=== PATIENT | female | born 1950 | race Caucasian/White ===

== ENCOUNTER 2016-08-10 13:39 | Outpatient (CLI) | payer OTHER ==
--- NOTE | 2016-08-10 14:26 | DIAGNOSTIC IMAGING REPORT ---
PROCEDURE: MG BILATERAL SCREENING W/CAD INDICATION: Screening. Prior right breast carcinoma with lumpectomy and radiation (2000). Family history breast carcinoma (sister). TECHNIQUE: Bilateral CC and MLO digital views. COMPARISON: Compared to 08/12/2015, 06/12/2014, 12/05/2012, 11/15/2011, 10/08/2010, and 11/03/2009. FINDINGS: Computer-aided detection applied. Moderately dense with a few scattered dystrophic calcification. There is parenchymal scarring in the medial right breast which appears stable. There is a 2.5 cm area of increased density in the retroareolar region of the right breast with obscured margins (seen only on the MLO view). IMPRESSION: 1. There is a 2.5 cm density in the retroareolar right breast mammogram (seen only on the MLO view). While this may represent normal asymmetric parenchyma, underlying mass or cyst should also be considered. Further mammographic views ( true lateral view, CC and MLO spot compression views) are recommended. In addition, right breast ultrasound is recommended. RESULT CODE: 0- Incomplete; needs additional evaluation. A. A negative report should not delay biopsy if a dominant or clinically suspicious mass is present. 10-15% of cancers are not identified by x-ray. B. A negative report may reinforce clinical impression. C. Adenosis and dense breasts may obscure an underlying neoplasm. D. False positive reports average 6-10%. E.. A yearly screening mammogram is recommended. A reminder letter will be scheduled.
--- NOTE | 2016-08-10 16:26 | DIAGNOSTIC IMAGING REPORT ---
PROCEDURE: DEXA BONE DENSITY STUDY CLINICAL INDICATION: SCREENING COMPARISON: DEXA 01/27/2005 FINDINGS: LUMBAR SPINE: Bone mineral density 0.955 g/cm2, T score -0.8 normal LEFT HIP: Bone mineral density 0.895 g/cm2, T score -0.4 normal which represents a 1.7% decrease from the previous study LEFT FEMORAL NECK: Bone mineral density 0.668 g/cm2, T score -1.6 osteopenia which represents a 12.2% decrease from the previous study FRACTURE RISK CALCULATION ( when applicable): 10-year fracture risk of a major osteoporotic fracture 8% and of a hip fracture 1.3% (T score greater or equal to -1.0 to: NORMAL) (T score from -1.1 to -2.4: OSTEOPENIA) (T score ess than or equal to -2.5: OSTEOPOROSIS) IMPRESSION: 1. Osteopenia left femoral neck with a 10-year fracture risk of 8% and a hip fracture risk of 1.3%
== END 2016-08-10 23:00 ==
LOC: MAM SRH 13:39
DX: Z12.31 Encounter for screening mammogram for malignant neoplasm of breast (principal); M85.88 Other specified disorders of bone density and structure, other site; Z80.3 Family history of malignant neoplasm of breast

== ENCOUNTER 2016-08-18 10:56 | Outpatient (CLI) | payer OTHER ==
--- NOTE | 2016-08-18 12:19 | DIAGNOSTIC IMAGING REPORT ---
PROCEDURE: MG UNILATERAL DIAG-RT W/CAD INDICATION: Follow-up asymmetric density in the retroareolar right breast. History of right breast carcinoma. TECHNIQUE: True lateral digital view of the right breast. In addition, spot compression CC and MLO views were obtained of the retro areolar right breast (region of clinical concern). Finally, high-resolution right breast ultrasound was performed (18 mHz) with limited real-time comparison images of the retroareolar left breast.. COMPARISON: Comparison is made to screening mammogram studies on 08/10/2016, 08/12/2015, and 06/12/2014. FINDINGS: MAMMOGRAM: Computer-aided detection applied. Increased density in the retroareolar region of the right breast is consistent with normal asymmetric parenchyma. No evidence of mass or suspicious calcification. BREAST ULTRASOUND: Mildly heterogeneous normal parenchyma. No evidence of mass or cyst. IMPRESSION: 1. Negative mammogram and negative right breast ultrasound. No evidence of mass or architectural distortion. 2. Findings discussed with the patient. 3. Resume routine screening schedule (July 2017). RESULT CODE: 2- Benign finding(s). A. A negative report should not delay biopsy if a dominant or clinically suspicious mass is present. 10-15% of cancers are not identified by x-ray. B. A negative report may reinforce clinical impression. C. Adenosis and dense breasts may obscure an underlying neoplasm. D. False positive reports average 6-10%. E.. A yearly screening mammogram is recommended. A reminder letter will be scheduled.
== END 2016-08-18 23:00 ==
LOC: MAM SRH 10:56
DX: N63 Unspecified lump in breast (principal); Z85.3 Personal history of malignant neoplasm of breast